=== PATIENT | male | born 1965 | race Hispanic/Latino ===

== ENCOUNTER 2025-03-13 09:28 | Emergency (ER) | payer SELFPAY ==
[~2025-03-13] VITALS: Ht 172.7 cm; Wt 77.1 kg
[2025-03-13 09:35] VITALS: PULSE 88; RESP 16; TEMP 97.8; O2SAT 98
[2025-03-13] MEDS: KETOROLAC TROMETHAMINE 30 MG/ML VIAL IM STA (10:06)
[2025-03-13 10:20] LABS: CORONAVIRUS COVID-19 AG POSITIVE (NEGATIVE)
[2025-03-13 10:21] LABS: INFLUENZA A AG NEGATIVE (NEGATIVE); INFLUENZA B AG NEGATIVE (NEGATIVE)
[2025-03-13] MEDS ORDERED: MUCINEX DM ER1 EACH PO (10:35)
[2025-03-13] MEDS ORDERED: ZYRTEC10 M3 PO (10:35)
== END 2025-03-13 10:55 | disposition home or self-care (01) ==
LOC: ER 09:34
DX: R05.9 Cough, unspecified (principal); U07.1 COVID-19; R51.9 Headache, unspecified; R09.89 Other specified symptoms and signs involving the circulatory and respiratory systems
CPT/HCPCS: 87428; 99283; J1885